=== PATIENT | female | born 1935 | race American Indian/Alaskan Native ===

== ENCOUNTER 2017-08-28 14:18 | Inpatient (IN) | payer MEDICARE ==
[2017-08-28] MEDS ORDERED: SILVER NITRATE TP ONE ×2 (15:21→15:22)
[2017-08-28 16:55] LABS: Hematocrit 23.2 % (30.3-42.9); Hemoglobin 7.2 gm/dl (10.1-14.3); Mean Corpuscular HGB Conc 31 % (30-34); Mean Corpuscular Hemoglobin 28 pg (28-32); Mean Corpuscular Volume 91 fl (79-97); Platelet Count 348 K/mm3 (140-440); Red Blood Count 2.56 M/mm3 (3.65-5.03); Red Cell Distribution Width 18.7 % (13.2-15.2)
--- NOTE | 2017-08-28 17:12 | Emergency Department Report ---
HPI - General Chief Complaint: Extremity Injury, Upper Time Seen by Provider: 08/28/17 14:54 - HPI HPI: 81-year-old -[place] female presents to ED with bleeding at dialysis access. Patient had dialysis earlier today get finished around 11 ED Past Medical Hx - Past Medical History Previous Medical History?: Yes Hx Diabetes: Yes Hx GERD: Yes Hx Renal Disease: Yes Hx Psychiatric Treatment: Yes (paranoid schizo) Hx Dementia: Yes Additional medical history: afib - Social History Smoking Status: Unknown if ever smoked - Medications Home Medications: Home Medications Medication Instructions Recorded Confirmed Last Taken Type ALPRAZolam [Xanax TAB] 0.25 mg FEEDTUBE Q6H PRN 08/28/17 08/28/17 Unknown History Acetaminophen [Children's 10 ml FEEDTUBE Q6H PRN 08/28/17 08/28/17 Unknown History Acetaminophen] Arformoterol Nebu [Brovana Nebu] 15 mcg IH Q12HR 08/28/17 08/28/17 Unknown History Aspirin [Aspirin BABY CHEW TAB] 81 mg FEEDTUBE DAILY 08/28/17 08/28/17 Unknown History AtorvaSTATin [Lipitor] 20 mg FEEDTUBE QHS 08/28/17 08/28/17 Unknown History Budesonide [Pulmicort] 0.5 mg IH Q12H 08/28/17 08/28/17 Unknown History Cinacalcet [Sensipar] 30 mg FEEDTUBE HS 08/28/17 08/28/17 Unknown History Clopidogrel Bisulfate [Plavix] 75 mg FEEDTUBE DAILY 08/28/17 08/28/17 Unknown History Donepezil [Aricept] 5 mg FEEDTUBE HS 08/28/17 08/28/17 Unknown History Dorzolamide HCl/Timolol Maleat 1 drop OU BID 08/28/17 08/28/17 Unknown History [Cosopt Eye Drops] Ferrous Sulfate [Ferrous Sulfate 5 ml FEEDTUBE DAILY 08/28/17 08/28/17 Unknown History Oral Liq 300 Mg/5 Ml] Ipratropium/Albuterol Sulfate 1 ampul IH Q8HR 08/28/17 08/28/17 Unknown History [DUONEB *Not for PRN Use*] Pantoprazole Sodium [Protonix 40 mg FEEDTUBE QDAY 08/28/17 08/28/17 Unknown History GRANULES] Phenyleph/Pramoxin/Glycr/W.pet 1 applic RC DAILY PRN 08/28/17 08/28/17 Unknown History [Hemorrhoidal Cream] QUEtiapine [SEROquel] 25 mg FEEDTUBE HS 08/28/17 08/28/17 Unknown History Sevelamer Carbonate [Renvela] 0.8 gm FEEDTUBE TID 08/28/17 08/28/17 Unknown History Vit B Comp No.3/Folic/C/Biotin 1 each FEEDTUBE DAILY 08/28/17 08/28/17 Unknown History [Nephro-Jeaneth Rx Tablet] Warfarin Sodium [Coumadin] 2.5 mg FEEDTUBE 4XW 08/28/17 08/28/17 Unknown History Warfarin Sodium [Coumadin] 3 mg FEEDTUBE 3XW 08/28/17 08/28/17 Unknown History traMADol [Ultram] 50 mg FEEDTUBE Q6HR PRN 08/28/17 08/28/17 Unknown History ED Review of Systems ROS: Stated complaint: BLEEDING Other details as noted in HPI Physical Exam - Physical Exam Vital Signs: Vital Signs 08/28/17 14:18 Temperature 98 F Pulse Rate 117 H Respiratory 16 Rate Blood Pressure 113/48 O2 Sat by Pulse 100 Oximetry Physical Exam: Gen. Alert nonverbal Head atraumatic normocephalic Eyes PERR LA EOMI Chest regular rate and rhythm normal S1-S2 lungs clear bilaterally Abdomen soft nondistended Back no point tenderness paravertebral tenderness Neuro no focal deficit. Psych normal mood. Extremity: Left upper arm with bleeding AV fistula ED Course Vital Signs 08/28/17 14:18 Temperature 98 F Pulse Rate 117 H Respiratory 16 Rate Blood Pressure 113/48 O2 Sat by Pulse 100 Oximetry - Reevaluation(s) Reevaluation #1: 08/28/17 18:37 Procedure 1 After pressure dressing at the site of the left upper arm AV fistula for 1 hour without success of hemostasis. Hemostasis agent added to bleeding without success in stopping it. In a sterile manner, 2 interrupted 5.0, Nylon, sutured place in left upper arm at the bleeding site of the dialysis fistula. Bleeding stopped. Procedure #2 Nurses unable to obtain peripheral IV in this patient, left neck area prepped in a sterile manner 20-gauge INT placed in her left external jugular vein without difficulty, patient tolerated procedure well. ED Medical Decision Making - Lab Data Result diagrams: 08/28/17 Unknown 08/28/17 Unknown Critical care attestation.: If time is entered above; I have spent that time in minutes in the direct care of this critically ill patient, excluding procedure time. ED Disposition Clinical Impression: Bleeding, Bleeding from dialysis shunt, Coumadin toxicity Disposition: OP ADMIT IP TO THIS HOSP Is pt being admited?: Yes Does the pt Need Aspirin: No Condition: Stable Referrals: PRIMARY CARE, [Primary Care Provider] - 3-5 Days
--- NOTE | 2017-08-28 17:23 | Event Note ---
Date: 08/28/17 81 year old long term patient who presented to the ER with bleeding from her AV access. Pressure held for 2 hrs, then ER placed a few stitched and the bleeding stopped. Patient is on chronic coumadin. Recommend admission by hospitalist group. Ordered DDAVP 20 mcg IV x 1 Ordered Protamine 20 mg IV x 1 Recommend obtaining INR, Plt, PTT. NPO after MN. Fistulogram tomorrow.
[2017-08-28 17:42] LABS: INR 5.79 (0.87-1.13); Partial Thromboplastin Time 70.7 Sec. (24.2-36.6)
[2017-08-28] MEDS ORDERED: PROTAMINE SULFATE IV ONE (18:00)
[2017-08-28] MEDS ORDERED: DDAVP 20 MCG in NACL 0.9% 50 ML IV ONE (18:00)
[2017-08-28] MEDS ORDERED: NACL 0.9% IV ONE (18:00)
--- NOTE | 2017-08-28 18:42 | XRay Report ---
FINAL REPORT EXAM: XR CHEST 1V AP HISTORY: dypsnea TECHNIQUE: Frontal portable examination of the chest PRIORS: None FINDINGS: Oblique patient position limits the examination. No visible acute displaced fracture. No pneumothorax or pleural effusion. Cardiac silhouette size slightly enlarged without definite vascular congestion Nonspecific patchy, linear, and interstitial opacity is noted in the left perihilar region, left upper lobe, and right upper lung. Associated slight consolidation in right upper lung. IMPRESSION: Bilateral pulmonary opacities may be scar, atelectasis, and/or pneumonia Slight cardiomegaly
[2017-08-28 19:10] LABS: Hematocrit 21.4 % (30.3-42.9); Hemoglobin 6.9 gm/dl (10.1-14.3); Mean Corpuscular HGB Conc 32 % (30-34); Mean Corpuscular Hemoglobin 29 pg (28-32); Mean Corpuscular Volume 89 fl (79-97); Platelet Count 371 K/mm3 (140-440); Red Blood Count 2.41 M/mm3 (3.65-5.03); Red Cell Distribution Width 19.1 % (13.2-15.2)
[2017-08-28] MEDS ORDERED: PROVENTIL IH PRN (19:19)
[2017-08-28] MEDS ORDERED: TYLENOL PO PRN (19:19)
[2017-08-28] MEDS ORDERED: MILK OF MAGNESIA PO PRN (19:19)
[2017-08-28] MEDS ORDERED: ZOFRAN IV PRN (19:19)
[2017-08-28] MEDS ORDERED: DULCOLAX PR PRN (19:19)
[2017-08-28] MEDS ORDERED: [UNRECOGNIZED DRUG - OTHER] RC PRN (19:21)
[2017-08-28] MEDS ORDERED: ACETAMINOPHEN FEEDTUBE PRN (19:21)
--- NOTE | 2017-08-28 19:24 | History and Physical Report ---
History of Present Illness Chief complaint: dialysis access malfunction History of present illness: 81 YO Female [facility] Resident with DM, GERD, Dementia, Atrial Fib on Anticoagulation, Paranoid Schizophrenia, Debility, ESRD on HD presents to ED for evaluation. Pt is nonverbal and unable to provide history. Pt history is taken from granddaughter who is at bedside during exam and interview. As per granddaughter, the patient underwent routine dialysis today and after her session was completed, she experienced uncontrolled bleeding from her dialysis access site. EMS was called and patient transported to [facility] for evaluation. Pt seen and evaluated in ED and found to heve coumadin toxicity, as well as Bilateral Pneumonia and Acute Hypoxemic Respiratory Failure complicated by sepsis. Pt initiated on sepsis protocol and admitted to medical floor and initiated on NIPPV. Past History Past Medical History: atrial fib, anemia, diabetes, ESRD, GERD Past Surgical History: Other (AV Fistula) Social history: . denies: smoking, alcohol abuse, prescription drug abuse Family history: hypertension Medications and Allergies Allergies Allergy/AdvReac Type Severity Reaction Status Date / Time No Known Allergies Allergy Unverified 08/28/17 14:22 Home Medications Medication Instructions Recorded Confirmed Last Taken Type ALPRAZolam [Xanax TAB] 0.25 mg FEEDTUBE Q6H PRN 08/28/17 08/28/17 Unknown History Acetaminophen [Children's 10 ml FEEDTUBE Q6H PRN 08/28/17 08/28/17 Unknown History Acetaminophen] Arformoterol Nebu [Brovana Nebu] 15 mcg IH Q12HR 08/28/17 08/28/17 Unknown History Aspirin [Aspirin BABY CHEW TAB] 81 mg FEEDTUBE DAILY 08/28/17 08/28/17 Unknown History AtorvaSTATin [Lipitor] 20 mg FEEDTUBE QHS 08/28/17 08/28/17 Unknown History Budesonide [Pulmicort] 0.5 mg IH Q12H 08/28/17 08/28/17 Unknown History Cinacalcet [Sensipar] 30 mg FEEDTUBE HS 08/28/17 08/28/17 Unknown History Clopidogrel Bisulfate [Plavix] 75 mg FEEDTUBE DAILY 08/28/17 08/28/17 Unknown History Donepezil [Aricept] 5 mg FEEDTUBE HS 08/28/17 08/28/17 Unknown History Dorzolamide HCl/Timolol Maleat 1 drop OU BID 08/28/17 08/28/17 Unknown History [Cosopt Eye Drops] Ferrous Sulfate [Ferrous Sulfate 5 ml FEEDTUBE DAILY 08/28/17 08/28/17 Unknown History Oral Liq 300 Mg/5 Ml] Ipratropium/Albuterol Sulfate 1 ampul IH Q8HR 08/28/17 08/28/17 Unknown History [DUONEB *Not for PRN Use*] Pantoprazole Sodium [Protonix 40 mg FEEDTUBE QDAY 08/28/17 08/28/17 Unknown History GRANULES] Phenyleph/Pramoxin/Glycr/W.pet 1 applic RC DAILY PRN 08/28/17 08/28/17 Unknown History [Hemorrhoidal Cream] QUEtiapine [SEROquel] 25 mg FEEDTUBE HS 08/28/17 08/28/17 Unknown History Sevelamer Carbonate [Renvela] 0.8 gm FEEDTUBE TID 08/28/17 08/28/17 Unknown History Vit B Comp No.3/Folic/C/Biotin 1 each FEEDTUBE DAILY 08/28/17 08/28/17 Unknown History [Nephro-Jeaneth Rx Tablet] Warfarin Sodium [Coumadin] 2.5 mg FEEDTUBE 4XW 08/28/17 08/28/17 Unknown History Warfarin Sodium [Coumadin] 3 mg FEEDTUBE 3XW 08/28/17 08/28/17 Unknown History traMADol [Ultram] 50 mg FEEDTUBE Q6HR PRN 08/28/17 08/28/17 Unknown History Active Meds: Active Medications Acetaminophen (Tylenol) 650 mg PO Q4H PRN PRN Reason: Pain MILD(1-3)/Fever >100.5/WISEMAN Albuterol (Proventil) 2.5 mg IH Q4HRT PRN PRN Reason: Shortness Of Breath Albuterol/Ipratropium (Duoneb *Not For Prn Use*) 1 ampul IH Q8HR [facility] Alprazolam (Xanax) 0.25 mg FEEDTUBE Q6H PRN PRN Reason: Anxiety Arformoterol Tartrate (Brovana Nebu) 15 mcg IH Q12HR [facility] Aspirin (Baby Aspirin) 81 mg FEEDTUBE DAILY [facility] Atorvastatin Calcium (Lipitor) 20 mg FEEDTUBE QHS [facility] Bisacodyl (Dulcolax) 10 mg CA QDAY PRN PRN Reason: Constipation unrelieved by MOM Budesonide (Pulmicort) 0.5 mg IH Q12H [facility] Cinacalcet (Sensipar) 30 mg PO HS [facility] Clopidogrel Bisulfate (Plavix) 75 mg FEEDTUBE DAILY [facility] Donepezil HCl (Aricept) 5 mg FEEDTUBE HS [facility] Ferrous Sulfate (Ferrous Sulfate) 300 mg FEEDTUBE DAILY [facility] Magnesium Hydroxide (Milk Of Magnesia) 30 ml PO Q4H PRN PRN Reason: Constipation Miscellaneous Medication (Acetaminophen [Acetaminophen Oral Liq]) 10 ml FEEDTUBE Q6H PRN PRN Reason: Pain, Mild (1-3) Miscellaneous Medication (Dorzolamide Hcl/Timolol Maleat [Cosopt Eye Drops]) 1 drop OU BID [facility]K Miscellaneous Medication (Phenyleph/Pramoxin/Glycr/W.Pet [Hemorrhoidal Cream]) 1 applic RC DAILY PRN PRN Reason: Hemorrhoids Miscellaneous Medication (Sevelamer Carbonate [Renvela]) 0.8 gm FEEDTUBE TID [facility] Miscellaneous Medication (Vit B Comp No.3/Folic/C/Biotin [Nephro-Jeaneth Rx Tablet] ) 1 each FEEDTUBE DAILY [facility] Ondansetron HCl (Zofran) 4 mg IV Q8H PRN PRN Reason: N/V unrelieved by Reglan Pantoprazole (Protonix) 40 mg FEEDTUBE QDAY [facility] Quetiapine Fumarate (Seroquel) 25 mg FEEDTUBE HS [facility] Tramadol HCl (Ultram) 50 mg FEEDTUBE Q6HR PRN PRN Reason: Pain Review of Systems ROS unobtainable: due to mental status Exam - Constitutional Vitals: Temp Pulse Resp BP Pulse Ox 98 F 117 H 16 120/51 100 08/28/17 14:18 08/28/17 14:18 08/28/17 17:44 08/28/17 18:32 08/28/17 18:32 General appearance: Present: mild distress - EENT Eyes: Present: PERRL ENT: clear oral mucosa - Neck Neck: Present: supple, normal ROM - Respiratory Respiratory effort: labored Respiratory: bilateral: diminished, rhonchi - Cardiovascular Rhythm: irregularly irregular - Extremities Extremities: pulses symmetrical, No edema Extremity abnormal: edema Peripheral Pulses: within normal limits - Abdominal General gastrointestinal: Present: soft, non-tender, non-distended, normal bowel sounds Female genitourinary: Present: normal - Integumentary Integumentary: Present: clear, dry, decreased turgor - Musculoskeletal Musculoskeletal: generalized weakness - Psychiatric Psychiatric: no intact judgment & insight, no memory intact - Neurologic Neurologic: no moves all extremities, no gait normal Results - Labs CBC & Chem 7: 08/28/17 Unknown 08/28/17 Unknown Labs: Abnormal lab results 08/28/17 08/28/17 08/28/17 Range/Units 17:08 19:03 Unknown WBC 22.2 H 20.0 H (4.5-11.0) K/mm3 RBC 2.41 L 2.56 L (3.65-5.03) M/mm3 Hgb 6.9 L 7.2 L (10.1-14.3) gm/dl Hct 21.4 L 23.2 L (30.3-42.9) % RDW 19.1 H 18.7 H (13.2-15.2) % PT 56.5 H (12.2-14.9) Sec. INR 5.79 H* (0.87-1.13) APTT 70.7 H* (24.2-36.6) Sec. Potassium (3.6-5.0) mmol/L Chloride (98-107) mmol/L BUN (7-17) mg/dL Creatinine (0.7-1.2) mg/dL Glucose (65-100) mg/dL Calcium (8.4-10.2) mg/dL 08/28/17 Range/Units Unknown WBC (4.5-11.0) K/mm3 RBC (3.65-5.03) M/mm3 Hgb (10.1-14.3) gm/dl Hct (30.3-42.9) % RDW (13.2-15.2) % PT (12.2-14.9) Sec. INR (0.87-1.13) APTT (24.2-36.6) Sec. Potassium 3.2 L (3.6-5.0) mmol/L Chloride 97.5 L (98-107) mmol/L BUN 38 H (7-17) mg/dL Creatinine 2.3 H (0.7-1.2) mg/dL Glucose 117 H (65-100) mg/dL Calcium 7.0 L (8.4-10.2) mg/dL Assessment and Plan - Patient Problems (1) Sepsis Current Visit: Yes Status: Acute Qualifiers: Sepsis type: sepsis due to unspecified organism Qualified Code(s): A41.9 - Sepsis, unspecified organism Plan to address problem: IV antibiotics, IVF, serial lactic acid, Blood cultures, monitor uop q shift, Chest X ray, (2) Acute respiratory failure Current Visit: Yes Status: Acute Qualifiers: Respiratory failure complication: hypoxia Qualified Code(s): J96.01 - Acute respiratory failure with hypoxia Plan to address problem: Supplemental oxygen, nebulizer therapy, ABG, Chest X ray, aspiration precautions , NIPPV, (3) Pneumonia Current Visit: Yes Status: Acute Qualifiers: Laterality: bilateral Plan to address problem: Pneumonia protocol; IV anitbiotics, IVF, NIPPV, Aspiration precautions, (4) Bleeding from dialysis shunt Current Visit: Yes Status: Acute Plan to address problem: Vascular surgery consulted, pending fistulagram in am. (5) Coumadin toxicity Current Visit: Yes Status: Acute Qualifiers: Encounter type: initial encounter Plan to address problem: hold coumadin, repeat INR, (6) DVT prophylaxis Current Visit: Yes Status: Acute Plan to address problem: SCD to BLE
[2017-08-28] MEDS ORDERED: ULTRAM ONE (19:45)
[2017-08-28 19:56] LABS: Basophils % (Manual) 0 % (0.0-1.8); Eosinophils % (Manual) 0 % (0.0-4.3); Total Cells Counted 100
[2017-08-28 19:58] LABS: Anisocytosis Few; Poikilocytosis Few; Target Cells Few
[2017-08-28] MEDS ORDERED: SEVELAMER CARBONATE 0.8 GM FEEDTUBE SCH (20:00)
[2017-08-28] MEDS ORDERED: NACL 0.9% 1000 ML IV ONE (20:00)
[2017-08-28] MEDS ORDERED: VANCOMYCIN VIAL IV ONE (20:00)
[2017-08-28] MEDS ORDERED: VANCOMYCIN PHARMACY TO DOSE IV SCH (20:00)
[2017-08-28] MEDS ORDERED: TYLENOL FEEDTUBE PRN ×2 (20:02→20:29)
[2017-08-28] MEDS ORDERED: PREPARATION H PR PRN ×2 (20:04→21:00)
[2017-08-28] MEDS: ULTRAM FEEDTUBE PRN (20:04)
[2017-08-28] MEDS ORDERED: PULMICORT IH ONE (20:38)
[2017-08-28] MEDS: PULMICORT IH SCH (20:56)
[2017-08-28] MEDS ORDERED: BROVANA NEBU IH ONE (21:00)
[2017-08-28] MEDS ORDERED: DUONEB *Not for PRN Use IH ONE (21:00)
[2017-08-28] MEDS ORDERED: ZITHROMAX 500 MG in NACL 0.9% 250ML 250 ML IV SCH (21:00)
[2017-08-28] MEDS: DUONEB *Not for PRN Use IH SCH (21:03)
[2017-08-28] MEDS: BROVANA NEBU IH SCH (21:04)
[2017-08-28] MEDS ORDERED: NON-FORMULARY (Dorzolamide Hcl/Timolol Maleat [Cosopt Eye Drops] 1 DROP) OU SCH (22:00)
[2017-08-28 22:28] LABS: Bacteria,Urine 2+ /HPF (Negative); Bilirubin,Urine NEG (Negative); Blood,Urine MOD (Negative); Color,Urine Amber (Yellow); Mucus,Urine FEW /HPF; Renal Epithelial Cells,Urine 5 /LPF; Urobilinogen,Urine < 2.0 mg/dL (<2.0)
[2017-08-28] MEDS: SENSIPAR PO SCH (22:54)
[2017-08-28] MEDS: ARICEPT FEEDTUBE SCH (22:54)
[2017-08-28] MEDS: cefTRIAXone 1 GM in NACL 0.9% 20 ML IV SCH (22:55)
[2017-08-28] MEDS ORDERED: VANCOMYCIN 1,750 MG in NACL 0.9% 500 ML 500 ML IV ONE (23:00)
[2017-08-29] MEDS: ULTRAM FEEDTUBE PRN (01:31)
[2017-08-29] MEDS: XANAX FEEDTUBE PRN (01:31)
[2017-08-29 06:47] LABS: Hematocrit 20.1 % (30.3-42.9); Hemoglobin 6.3 gm/dl (10.1-14.3); Mean Corpuscular HGB Conc 31 % (30-34); Mean Corpuscular Hemoglobin 28 pg (28-32); Mean Corpuscular Volume 90 fl (79-97); Platelet Count 351 K/mm3 (140-440); Red Blood Count 2.23 M/mm3 (3.65-5.03); Red Cell Distribution Width 18.5 % (13.2-15.2)
[2017-08-29] MEDS: PULMICORT IH SCH ×2 (08:05→20:02)
[2017-08-29] MEDS: BROVANA NEBU IH SCH ×2 (08:05→14:43)
[2017-08-29] MEDS: DUONEB *Not for PRN Use IH SCH ×3 (08:06→20:02)
[2017-08-29 08:34] LABS: Basophils % (Manual) 0 % (0.0-1.8); Eosinophils % (Manual) 0 % (0.0-4.3); Total Cells Counted 100
[2017-08-29 08:37] LABS: Anisocytosis 1+; Hypochromasia 1+; Platelet Estimate Cons; Toxic Granulation 1+
--- NOTE | 2017-08-29 09:45 | Consultation ---
History of Present Illness - Reason for Consult Consult date: 08/29/17 end stage renal disease, other (Anemia.) - History of Present Illness The patient is a 81 YO AAF with history significant for Type 2 DM, GERD, Dementia, Atrial Fib on Anticoagulation, Paranoid Schizophrenia, ESRD on HD(TTS ) and NH resident who was brought into ED for evaluation of uncontrolled bleeding from her right forearm dialysis access site. Patient is non-verbal and there was no family available at the bedside. Pt seen and evaluated in ED and found to heve coumadin toxicity, as well as Bilateral Pneumonia and Acute Hypoxemic Respiratory Failure. Patient had stitch placed in the ER and subsequently the bleeding was stopped. She also received DDAVP and Protamine. Vascular scheduled her to get Fistulogram today. Patient completed the hemodialysis session yesterday. Her Hb is 6.3 today. Past History Past Medical History: atrial fib, anemia, diabetes, ESRD, GERD Past Surgical History: Other (AV Fistula) Social history: . denies: smoking, alcohol abuse, prescription drug abuse Family history: hypertension Medications and Allergies Allergies Allergy/AdvReac Type Severity Reaction Status Date / Time No Known Allergies Allergy Unverified 08/28/17 14:22 Home Medications Medication Instructions Recorded Confirmed Last Taken Type ALPRAZolam [Xanax TAB] 0.25 mg FEEDTUBE Q6H PRN 08/28/17 08/28/17 Unknown History Acetaminophen [Children's 10 ml FEEDTUBE Q6H PRN 08/28/17 08/28/17 Unknown History Acetaminophen] Arformoterol Nebu [Brovana Nebu] 15 mcg IH Q12HR 08/28/17 08/28/17 Unknown History Aspirin [Aspirin BABY CHEW TAB] 81 mg FEEDTUBE DAILY 08/28/17 08/28/17 Unknown History AtorvaSTATin [Lipitor] 20 mg FEEDTUBE QHS 08/28/17 08/28/17 Unknown History Budesonide [Pulmicort] 0.5 mg IH Q12H 08/28/17 08/28/17 Unknown History Cinacalcet [Sensipar] 30 mg FEEDTUBE HS 08/28/17 08/28/17 Unknown History Clopidogrel Bisulfate [Plavix] 75 mg FEEDTUBE DAILY 08/28/17 08/28/17 Unknown History Donepezil [Aricept] 5 mg FEEDTUBE HS 08/28/17 08/28/17 Unknown History Dorzolamide HCl/Timolol Maleat 1 drop OU BID 08/28/17 08/28/17 Unknown History [Cosopt Eye Drops] Ferrous Sulfate [Ferrous Sulfate 5 ml FEEDTUBE DAILY 08/28/17 08/28/17 Unknown History Oral Liq 300 Mg/5 Ml] Ipratropium/Albuterol Sulfate 1 ampul IH Q8HR 08/28/17 08/28/17 Unknown History [DUONEB *Not for PRN Use*] Pantoprazole Sodium [Protonix 40 mg FEEDTUBE QDAY 08/28/17 08/28/17 Unknown History GRANULES] Phenyleph/Pramoxin/Glycr/W.pet 1 applic RC DAILY PRN 08/28/17 08/28/17 Unknown History [Hemorrhoidal Cream] QUEtiapine [SEROquel] 25 mg FEEDTUBE HS 08/28/17 08/28/17 Unknown History Sevelamer Carbonate [Renvela] 0.8 gm FEEDTUBE TID 08/28/17 08/28/17 Unknown History Vit B Comp No.3/Folic/C/Biotin 1 each FEEDTUBE DAILY 08/28/17 08/28/17 Unknown History [Nephro-Jeaneth Rx Tablet] Warfarin Sodium [Coumadin] 2.5 mg FEEDTUBE 4XW 08/28/17 08/28/17 Unknown History Warfarin Sodium [Coumadin] 3 mg FEEDTUBE 3XW 08/28/17 08/28/17 Unknown History traMADol [Ultram] 50 mg FEEDTUBE Q6HR PRN 08/28/17 08/28/17 Unknown History Active Meds: Active Medications Acetaminophen (Tylenol) 325 mg FEEDTUBE Q4H PRN PRN Reason: Pain, Mild (1-3) Acetaminophen (Tylenol) 650 mg FEEDTUBE Q4H PRN PRN Reason: Pain, Mild /FEVER>100.5/WISEMAN Albuterol (Proventil) 2.5 mg IH Q4HRT PRN PRN Reason: Shortness Of Breath Albuterol/Ipratropium (Duoneb *Not For Prn Use*) 1 ampul IH Q8HR [facility] Last Admin: 08/29/17 08:06 Dose: 1 ampul Alprazolam (Xanax) 0.25 mg FEEDTUBE Q6H PRN PRN Reason: Anxiety Last Admin: 08/29/17 01:31 Dose: 0.25 mg Arformoterol Tartrate (Brovana Nebu) 15 mcg IH Q12HR [facility] Last Admin: 08/29/17 08:05 Dose: 15 mcg Aspirin (Baby Aspirin) 81 mg FEEDTUBE DAILY [facility] Atorvastatin Calcium (Lipitor) 20 mg FEEDTUBE QHS [facility] Last Admin: 08/28/17 22:54 Dose: 20 mg Bisacodyl (Dulcolax) 10 mg DC QDAY PRN PRN Reason: Constipation unrelieved by MOM Budesonide (Pulmicort) 0.5 mg IH Q12H [facility] Last Admin: 08/29/17 08:05 Dose: 0.5 mg Cinacalcet (Sensipar) 30 mg PO HS [facility] Last Admin: 08/28/17 22:54 Dose: 30 mg Clopidogrel Bisulfate (Plavix) 75 mg FEEDTUBE DAILY [facility] Donepezil HCl (Aricept) 5 mg FEEDTUBE [facility] Last Admin: 08/28/17 22:54 Dose: 5 mg Ferrous Sulfate (Ferrous Sulfate) 300 mg FEEDTUBE DAILY [facility] Azithromycin 500 mg/ Sodium (Chloride) 250 mls @ 250 mls/hr IV Q24H [facility] Last Admin: 08/28/17 22:54 Dose: 250 mls/hr Ceftriaxone Sodium 1 gm/ (Sodium Chloride) 20 mls @ 20 mls/10 min IV Q24H [facility] Last Admin: 08/28/17 22:55 Dose: 20 mls/10 min Magnesium Hydroxide (Milk Of Magnesia) 30 ml PO Q4H PRN PRN Reason: Constipation Miscellaneous Medication (Dorzolamide Hcl/Timolol Maleat [Cosopt Eye Drops]) 1 drop OU BID [facility] Miscellaneous Medication (Sevelamer Carbonate [Renvela]) 0.8 gm FEEDTUBE TID [facility] Miscellaneous Medication (Vit B Comp No.3/Folic/C/Biotin [Nephro-Jeaneth Rx Tablet] ) 1 each FEEDTUBE DAILY [facility] Ondansetron HCl (Zofran) 4 mg IV Q8H PRN PRN Reason: N/V unrelieved by Reglan Pantoprazole (Protonix) 40 mg FEEDTUBE QDAY [facility] Phenyleph/Shark Oil/Min Oil/Petrol (Preparation H) 1 applic DC DAILY PRN PRN Reason: Hemorrhoids Quetiapine Fumarate (Seroquel) 25 mg FEEDTUBE HS [facility] Last Admin: 08/28/17 22:54 Dose: 25 mg Tramadol HCl (Ultram) 50 mg FEEDTUBE Q6HR PRN PRN Reason: Pain Last Admin: 08/29/17 01:31 Dose: 50 mg Vancomycin HCl (Vancomycin Pharmacy To Dose) 1 each IV PKCONSULT [facility]IVEK PRN Reason: Protocol Review of Systems ROS unobtainable: due to mental status Exam - Vital Signs Vital signs: Vital Signs Pulse Ox 100 08/28/17 14:12 - General Appearance General appearance: well-developed, appears stated age, other (no distress) EENT: ATNC, PERRL Neck: Present: neck supple Respiratory: Clear to Ascultation Heart: regular, S1S2, no murmurs Gastrointestinal: Present: normoactive bowel sounds, other (PEG tube noted). Absent: tenderness Integumentary: no rash Neurologic: other (grimaces, non-verbal, not following any command) Musculoskeletal: Present: other (1+ edema of extremities noted, right FA dressing soaked with blood) Results - Lab Results 08/29/17 06:16 08/28/17 Unknown Most recent lab results Calcium 7.0 mg/dL (8.4-10.2) L 08/28/17 Unknown Assessment and Plan 1. ESRD: Continue hemodialysis three times a week, TTS schedule. 2. Anemia: PRBC ordered. Epogen as needed. 3. Bleeding AVF: Fistulogram today. 4. Coumadin toxicity. 5. Bilateral pneumonia. 6. Hypoxic respiratory failure.
[2017-08-29] MEDS ORDERED: ROCEPHIN/NS 2 GM/100 ML 2 GM/100 ML BAG IV SCH (10:00)
[2017-08-29] MEDS ORDERED: NON-FORMULARY (Vit B Comp No.3/Folic/C/Biotin [Nephro-Vite Rx Tablet] 1 EACH) FEEDTUBE SCH (10:00)
--- NOTE | 2017-08-29 10:11 | Progress Note ---
Assessment and Plan Assessment and plan: Sepsis IV antibiotics, IVF, serial lactic acid, Blood cultures, monitor uop q shift, Chest X ray, Acute respiratory failure Supplemental oxygen, nebulizer therapy, ABG, Chest X ray, aspiration precautions , NIPPV as needed Pneumonia Pneumonia pathway. Cont. IV anitbiotics, IVF, NIPPV as clinically indicated, Aspiration precautions, Bleeding from dialysis shunt Vascular surgery consulted, pending fistulagram today Coumadin toxicity hold coumadin, transfuse FFP, Vit K IV x 1 Acute blood loss anemia on ESRD Transfuse 2 units PRBCs ESRD HD per Nephrology DVT prophylaxis SCD to BLE History Interval history: PT still with bleeding at graft site Hospitalist Physical - Constitutional Vitals: Temp Pulse Resp BP Pulse Ox 98.4 F 128 H 22 125/56 95 08/29/17 07:25 08/29/17 08:19 08/29/17 08:19 08/29/17 07:25 08/29/17 08:20 General appearance: Present: mild distress - EENT Eyes: Present: PERRL, EOM intact ENT: hearing intact, clear oral mucosa, dentition normal - Neck Neck: Present: supple, normal ROM - Respiratory Respiratory effort: normal Respiratory: bilateral: CTA - Cardiovascular Rhythm: regular Heart Sounds: Present: S1 & S2. Absent: gallop, rub - Extremities Extremities: no ischemia, No edema, Full ROM - Abdominal General gastrointestinal: soft, non-tender, non-distended, normal bowel sounds - Integumentary Integumentary: Present: clear, warm, dry - Neurologic Neurologic: CNII-XII intact, moves all extremities Results - Labs CBC & Chem 7: 08/29/17 06:16 08/28/17 Unknown Labs: Laboratory Last Values WBC 18.0 K/mm3 (4.5-11.0) H 08/29/17 06:16 RBC 2.23 M/mm3 (3.65-5.03) L 08/29/17 06:16 Hgb 6.3 gm/dl (10.1-14.3) L 08/29/17 06:16 Hct 20.1 % (30.3-42.9) L 08/29/17 06:16 MCV 90 fl (79-97) 08/29/17 06:16 MCH 28 pg (28-32) 08/29/17 06:16 MCHC 31 % (30-34) 08/29/17 06:16 RDW 18.5 % (13.2-15.2) H 08/29/17 06:16 Plt Count 351 K/mm3 (140-440) 08/29/17 06:16 Add Manual Diff Complete 08/29/17 06:16 Total Counted 100 08/29/17 06:16 Seg Neutrophils % Founder 08/29/17 06:16 Seg Neuts % (Manual) 95.0 % (40.0-70.0) H 08/29/17 06:16 Band Neutrophils % 0 % 08/29/17 06:16 Lymphocytes % (Manual) 2.0 % (13.4-35.0) L 08/29/17 06:16 Reactive Lymphs % (Man) 0 % 08/29/17 06:16 Monocytes % (Manual) 3.0 % (0.0-7.3) 08/29/17 06:16 Eosinophils % (Manual) 0 % (0.0-4.3) 08/29/17 06:16 Basophils % (Manual) 0 % (0.0-1.8) 08/29/17 06:16 Metamyelocytes % 0 % 08/29/17 06:16 Myelocytes % 0 % 08/29/17 06:16 Promyelocytes % 0 % 08/29/17 06:16 Blast Cells % 0 % 08/29/17 06:16 Nucleated RBC % Not Reportable 08/29/17 06:16 Seg Neutrophils # Man 17.1 K/mm3 (1.8-7.7) H 08/29/17 06:16 Band Neutrophils # 0.0 K/mm3 08/29/17 06:16 Lymphocytes # (Manual) 0.4 K/mm3 (1.2-5.4) L 08/29/17 06:16 Abs React Lymphs (Man) 0.0 K/mm3 08/29/17 06:16 Monocytes # (Manual) 0.5 K/mm3 (0.0-0.8) 08/29/17 06:16 Eosinophils # (Manual) 0.0 K/mm3 (0.0-0.4) 08/29/17 06:16 Basophils # (Manual) 0.0 K/mm3 (0.0-0.1) 08/29/17 06:16 Metamyelocytes # 0.0 K/mm3 08/29/17 06:16 Myelocytes # 0.0 K/mm3 08/29/17 06:16 Promyelocytes # 0.0 K/mm3 08/29/17 06:16 Blast Cells # 0.0 K/mm3 08/29/17 06:16 WBC Morphology Not Reportable 08/29/17 06:16 Hypersegmented Neuts Not Reportable 08/29/17 06:16 Hyposegmented Neuts Not Reportable 08/29/17 06:16 Hypogranular Neuts Not Reportable 08/29/17 06:16 Smudge Cells Not Reportable 08/29/17 06:16 Toxic Granulation 1+ 08/29/17 06:16 Toxic Vacuolation Not Reportable 08/29/17 06:16 Dohle Bodies Not Reportable 08/29/17 06:16 Pelger-Huet Anomaly Not Reportable 08/29/17 06:16 Rafi Rods Not Reportable 08/29/17 06:16 Platelet Estimate Cons 08/29/17 06:16 Clumped Platelets Not Reportable 08/29/17 06:16 Plt Clumps, EDTA Not Reportable 08/29/17 06:16 Large Platelets Not Reportable 08/29/17 06:16 Giant Platelets Not Reportable 08/29/17 06:16 Platelet Satelliting Not Reportable 08/29/17 06:16 Plt Morphology Comment Not Reportable 08/29/17 06:16 RBC Morphology Not Reportable 08/29/17 06:16 Dimorphic RBCs Not Reportable 08/29/17 06:16 Polychromasia Not Reportable 08/29/17 06:16 Hypochromasia 1+ 08/29/17 06:16 Poikilocytosis Not Reportable 08/29/17 06:16 Anisocytosis 1+ 08/29/17 06:16 Microcytosis Not Reportable 08/29/17 06:16 Macrocytosis Not Reportable 08/29/17 06:16 Spherocytes Not Reportable 08/29/17 06:16 Pappenheimer Bodies Not Reportable 08/29/17 06:16 Sickle Cells Not Reportable 08/29/17 06:16 Target Cells Not Reportable 08/29/17 06:16 Tear Drop Cells Not Reportable 08/29/17 06:16 Ovalocytes Not Reportable 08/29/17 06:16 Helmet Cells Not Reportable 08/29/17 06:16 [place] Bodies Not Reportable 08/29/17 06:16 [place] Rings Not Reportable 08/29/17 06:16 [place] Cells Not Reportable 08/29/17 06:16 Bite Cells Not Reportable 08/29/17 06:16 Crenated Cell Not Reportable 08/29/17 06:16 Elliptocytes Not Reportable 08/29/17 06:16 Acanthocytes (Spur) Not Reportable 08/29/17 06:16 Rouleaux Not Reportable 08/29/17 06:16 Hemoglobin C Crystals Not Reportable 08/29/17 06:16 Schistocytes Not Reportable 08/29/17 06:16 Malaria parasites Not Reportable 08/29/17 06:16 Daniel Bodies Not Reportable 08/29/17 06:16 Hem Pathologist Commnt No 08/29/17 06:16 PT 56.5 Sec. (12.2-14.9) H 08/28/17 17:08 INR 5.79 (0.87-1.13) H* 08/28/17 17:08 APTT 70.7 Sec. (24.2-36.6) H* 08/28/17 17:08 POC ABG pH 7.483 (7.35-7.45) H 08/29/17 01:30 POC ABG pCO2 37.6 (35-45) 08/29/17 01:30 POC ABG pO2 98 (80-105) 08/29/17 01:30 POC ABG HCO3 28.2 08/29/17 01:30 POC ABG Total CO2 29 08/29/17 01:30 POC ABG O2 Sat 98 08/29/17 01:30 POC ABG Base Excess 5 08/29/17 01:30 FiO2 35 % 08/29/17 01:30 Sodium 142 mmol/L (137-145) 08/28/17 Unknown Potassium 3.2 mmol/L (3.6-5.0) L 08/28/17 Unknown Chloride 97.5 mmol/L (98-107) L 08/28/17 Unknown Carbon Dioxide 25 mmol/L (22-30) 08/28/17 Unknown Anion Gap 23 mmol/L 08/28/17 Unknown BUN 38 mg/dL (7-17) H 08/28/17 Unknown Creatinine 2.3 mg/dL (0.7-1.2) H 08/28/17 Unknown Estimated GFR 25 ml/min 08/28/17 Unknown BUN/Creatinine Ratio 17 % 08/28/17 Unknown Glucose 117 mg/dL (65-100) H 08/28/17 Unknown Lactic Acid 2.00 mmol/L (0.7-2.0) 08/29/17 06:16 Calcium 7.0 mg/dL (8.4-10.2) L 08/28/17 Unknown Urine Color [place] (Yellow) 08/28/17 21:58 Urine Turbidity Clear (Clear) 08/28/17 21:58 Urine pH 6.0 (5.0-7.0) 08/28/17 21:58 Ur Specific [place] 1.015 (1.003-1.030) 08/28/17 21:58 Urine Protein 100 mg/dl mg/dL (Negative) 08/28/17 21:58 Urine Glucose (UA) 50 mg/dL (Negative) 08/28/17 21:58 Urine Ketones Neg mg/dL (Negative) 08/28/17 21:58 Urine Blood Mod (Negative) 08/28/17 21:58 Urine Nitrite Neg (Negative) 08/28/17 21:58 Urine Bilirubin Neg (Negative) 08/28/17 21:58 Urine Urobilinogen < 2.0 mg/dL (<2.0) 08/28/17 21:58 Ur Leukocyte Esterase Mod (Negative) 08/28/17 21:58 Urine WBC (Auto) 161.0 /HPF (0.0-6.0) H 08/28/17 21:58 Urine RBC (Auto) 105.0 /HPF (0.0-6.0) 08/28/17 21:58 U Epithel Cells (Auto) 6.0 /HPF (0-13.0) 08/28/17 21:58 Urine Bacteria (Auto) 2+ /HPF (Negative) 08/28/17 21:58 Urine WBC Clumps 1+ /HPF 08/28/17 21:58 Ur Renal Epithelial Cell 5 /LPF 08/28/17 21:58 Urine Mucus Few /HPF 08/28/17 21:58
[2017-08-29] MEDS ORDERED: NACL 0.9% 100 ML IV PRN (10:31)
[2017-08-29] MEDS ORDERED: VITAMIN K (ADULT ONLY) 10 MG in NACL 0.9% 50 ML IV ONE (11:30)
[2017-08-29] MEDS ORDERED: NACL 0.9% 500 ML 500 ML IV ONE ×2 (13:00→16:00)
--- NOTE | 2017-08-29 14:02 | Consultation ---
History of Present Illness - Reason for Consult Consult date: 08/29/17 Bleeding fistula - History of Present Illness 81-year-old female who is a care home resident with dementia, paranoid schizophrenia, atrial fibrillation on Coumadin, diabetes, gastroesophageal reflux disease, and end-stage renal disease was brought to the hospital with bleeding from her left upper extremity AV graft. This was treated with DDAVP, protamine, pressure, and sutures and there is no additional bleeding from the site. The patient also has bleeding from a venipuncture of her right forearm with a pressure bandage held over that region. The patient was admitted to the hospital after prolonged bleeding from her left upper extremity dialysis access which could not be controlled. She was found to have Coumadin overdose, and respiratory issues complicated by sepsis. Upon evaluation of the patient, she had hematoma from her right forearm with a pressure bandage, and a weak thrill from her left upper extremity graft. She is alert, but oriented 0. Past History Past Medical History: atrial fib, anemia, diabetes, ESRD, GERD Past Surgical History: Other (AV Fistula) Social history: . denies: smoking, alcohol abuse, prescription drug abuse Family history: hypertension Medications and Allergies Allergies Allergy/AdvReac Type Severity Reaction Status Date / Time No Known Allergies Allergy Unverified 08/28/17 14:22 Home Medications Medication Instructions Recorded Confirmed Last Taken Type ALPRAZolam [Xanax TAB] 0.25 mg FEEDTUBE Q6H PRN 08/28/17 08/28/17 Unknown History Acetaminophen [Children's 10 ml FEEDTUBE Q6H PRN 08/28/17 08/28/17 Unknown History Acetaminophen] Arformoterol Nebu [Brovana Nebu] 15 mcg IH Q12HR 08/28/17 08/28/17 Unknown History Aspirin [Aspirin BABY CHEW TAB] 81 mg FEEDTUBE DAILY 08/28/17 08/28/17 Unknown History AtorvaSTATin [Lipitor] 20 mg FEEDTUBE QHS 08/28/17 08/28/17 Unknown History Budesonide [Pulmicort] 0.5 mg IH Q12H 08/28/17 08/28/17 Unknown History Cinacalcet [Sensipar] 30 mg FEEDTUBE HS 08/28/17 08/28/17 Unknown History Clopidogrel Bisulfate [Plavix] 75 mg FEEDTUBE DAILY 08/28/17 08/28/17 Unknown History Donepezil [Aricept] 5 mg FEEDTUBE HS 08/28/17 08/28/17 Unknown History Dorzolamide HCl/Timolol Maleat 1 drop OU BID 08/28/17 08/28/17 Unknown History [Cosopt Eye Drops] Ferrous Sulfate [Ferrous Sulfate 5 ml FEEDTUBE DAILY 08/28/17 08/28/17 Unknown History Oral Liq 300 Mg/5 Ml] Ipratropium/Albuterol Sulfate 1 ampul IH Q8HR 08/28/17 08/28/17 Unknown History [DUONEB *Not for PRN Use*] Pantoprazole Sodium [Protonix 40 mg FEEDTUBE QDAY 08/28/17 08/28/17 Unknown History GRANULES] Phenyleph/Pramoxin/Glycr/W.pet 1 applic RC DAILY PRN 08/28/17 08/28/17 Unknown History [Hemorrhoidal Cream] QUEtiapine [SEROquel] 25 mg FEEDTUBE HS 08/28/17 08/28/17 Unknown History Sevelamer Carbonate [Renvela] 0.8 gm FEEDTUBE TID 08/28/17 08/28/17 Unknown History Vit B Comp No.3/Folic/C/Biotin 1 each FEEDTUBE DAILY 08/28/17 08/28/17 Unknown History [Nephro-Jeaneth Rx Tablet] Warfarin Sodium [Coumadin] 2.5 mg FEEDTUBE 4XW 08/28/17 08/28/17 Unknown History Warfarin Sodium [Coumadin] 3 mg FEEDTUBE 3XW 08/28/17 08/28/17 Unknown History traMADol [Ultram] 50 mg FEEDTUBE Q6HR PRN 08/28/17 08/28/17 Unknown History Active Meds: Active Medications Acetaminophen (Tylenol) 650 mg FEEDTUBE Q4H PRN PRN Reason: Pain, Mild /FEVER>100.5/WISEMAN Albuterol (Proventil) 2.5 mg IH Q4HRT PRN PRN Reason: Shortness Of Breath Albuterol/Ipratropium (Duoneb *Not For Prn Use*) 1 ampul IH Q8HR VIVEK Last Admin: 08/29/17 08:06 Dose: 1 ampul Alprazolam (Xanax) 0.25 mg FEEDTUBE Q6H PRN PRN Reason: Anxiety Last Admin: 08/29/17 01:31 Dose: 0.25 mg Arformoterol Tartrate (Brovana Nebu) 15 mcg IH Q12HR [facility] Last Admin: 08/29/17 08:05 Dose: 15 mcg Aspirin (Baby Aspirin) 81 mg FEEDTUBE DAILY [facility] Atorvastatin Calcium (Lipitor) 20 mg FEEDTUBE QHS [facility] Last Admin: 08/28/17 22:54 Dose: 20 mg Azithromycin (Zithromax) 500 mg FEEDTUBE QHS [facility] Bisacodyl (Dulcolax) 10 mg DE QDAY PRN PRN Reason: Constipation unrelieved by MOM Budesonide (Pulmicort) 0.5 mg IH Q12H [facility] Last Admin: 08/29/17 08:05 Dose: 0.5 mg Cinacalcet (Sensipar) 30 mg PO HS [facility] Last Admin: 08/28/17 22:54 Dose: 30 mg Clopidogrel Bisulfate (Plavix) 75 mg FEEDTUBE DAILY [facility] Donepezil HCl (Aricept) 5 mg FEEDTUBE HS [facility] Last Admin: 08/28/17 22:54 Dose: 5 mg Ferrous Sulfate (Ferrous Sulfate) 300 mg FEEDTUBE DAILY [facility] Ceftriaxone Sodium 1 gm/ (Sodium Chloride) 20 mls @ 20 mls/10 min IV Q24H [facility] Last Admin: 08/28/17 22:55 Dose: 20 mls/10 min Sodium Chloride (Nacl 0.9%) 100 mls @ 999 mls/hr IV CHANDLER PRN PRN Reason: Hypotension Magnesium Hydroxide (Milk Of Magnesia) 30 ml PO Q4H PRN PRN Reason: Constipation Miscellaneous Medication (Dorzolamide Hcl/Timolol Maleat [Cosopt Eye Drops]) 1 drop OU BID [facility] Miscellaneous Medication (Sevelamer Carbonate [Renvela]) 0.8 gm FEEDTUBE TID [facility] Miscellaneous Medication (Vit B Comp No.3/Folic/C/Biotin [Nephro-Jeaneth Rx Tablet] ) 1 each FEEDTUBE DAILY [facility] Ondansetron HCl (Zofran) 4 mg IV Q8H PRN PRN Reason: N/V unrelieved by Reglan Pantoprazole (Protonix) 40 mg FEEDTUBE QDAY [facility] Phenyleph/Shark Oil/Min Oil/Petrol (Preparation H) 1 applic DE DAILY PRN PRN Reason: Hemorrhoids Quetiapine Fumarate (Seroquel) 25 mg FEEDTUBE HS VIVEK Last Admin: 08/28/17 22:54 Dose: 25 mg Tramadol HCl (Ultram) 50 mg FEEDTUBE Q6HR PRN PRN Reason: Pain Last Admin: 08/29/17 01:31 Dose: 50 mg Vancomycin HCl (Vancomycin Pharmacy To Dose) 1 each IV PKCONSULT VIVEK PRN Reason: Protocol Review of Systems ROS unobtainable: due to mental status Exam - Constitutional Vitals: Temp Pulse Resp BP Pulse Ox 98.4 F 128 H 22 125/56 95 08/29/17 07:25 08/29/17 08:19 08/29/17 08:19 08/29/17 07:25 08/29/17 08:20 General appearance: Present: other (obtunded) - EENT ENT: other (obtunded) - Respiratory Respiratory effort: other (on Ventimask) - Extremities Extremities: abnormal (right forearm hematoma, weak left upper extremity thrill) - Abdominal General gastrointestinal: Present: soft - Psychiatric Psychiatric: other (obtunded, oriented 0) Results - Labs CBC & Chem 7: 08/29/17 06:16 08/28/17 Unknown Labs: Abnormal lab results 08/28/17 08/28/17 08/28/17 Range/Units 17:08 19:03 21:58 WBC 22.2 H (4.5-11.0) K/mm3 RBC 2.41 L (3.65-5.03) M/mm3 Hgb 6.9 L (10.1-14.3) gm/dl Hct 21.4 L (30.3-42.9) % RDW 19.1 H (13.2-15.2) % Seg Neuts % (Manual) 94.0 H (40.0-70.0) % Lymphocytes % (Manual) 1.0 L (13.4-35.0) % Seg Neutrophils # Man 20.9 H (1.8-7.7) K/mm3 Lymphocytes # (Manual) 0.2 L (1.2-5.4) K/mm3 Monocytes # (Manual) 1.1 H (0.0-0.8) K/mm3 PT 56.5 H (12.2-14.9) Sec. INR 5.79 H* (0.87-1.13) APTT 70.7 H* (24.2-36.6) Sec. POC ABG pH (7.35-7.45) Potassium (3.6-5.0) mmol/L Chloride (98-107) mmol/L BUN (7-17) mg/dL Creatinine (0.7-1.2) mg/dL Glucose (65-100) mg/dL Calcium (8.4-10.2) mg/dL Urine WBC (Auto) 161.0 H (0.0-6.0) /HPF Crossmatch 08/28/17 08/28/17 08/29/17 Range/Units Unknown Unknown 01:30 WBC 20.0 H (4.5-11.0) K/mm3 RBC 2.56 L (3.65-5.03) M/mm3 Hgb 7.2 L (10.1-14.3) gm/dl Hct 23.2 L (30.3-42.9) % RDW 18.7 H (13.2-15.2) % Seg Neuts % (Manual) (40.0-70.0) % Lymphocytes % (Manual) (13.4-35.0) % Seg Neutrophils # Man (1.8-7.7) K/mm3 Lymphocytes # (Manual) (1.2-5.4) K/mm3 Monocytes # (Manual) (0.0-0.8) K/mm3 PT (12.2-14.9) Sec. INR (0.87-1.13) APTT (24.2-36.6) Sec. POC ABG pH 7.483 H (7.35-7.45) Potassium 3.2 L (3.6-5.0) mmol/L Chloride 97.5 L (98-107) mmol/L BUN 38 H (7-17) mg/dL Creatinine 2.3 H (0.7-1.2) mg/dL Glucose 117 H (65-100) mg/dL Calcium 7.0 L (8.4-10.2) mg/dL Urine WBC (Auto) (0.0-6.0) /HPF Crossmatch 08/29/17 08/29/17 Range/Units 06:16 11:40 WBC 18.0 H (4.5-11.0) K/mm3 RBC 2.23 L (3.65-5.03) M/mm3 Hgb 6.3 L (10.1-14.3) gm/dl Hct 20.1 L (30.3-42.9) % RDW 18.5 H (13.2-15.2) % Seg Neuts % (Manual) 95.0 H (40.0-70.0) % Lymphocytes % (Manual) 2.0 L (13.4-35.0) % Seg Neutrophils # Man 17.1 H (1.8-7.7) K/mm3 Lymphocytes # (Manual) 0.4 L (1.2-5.4) K/mm3 Monocytes # (Manual) (0.0-0.8) K/mm3 PT (12.2-14.9) Sec. INR (0.87-1.13) APTT (24.2-36.6) Sec. POC ABG pH (7.35-7.45) Potassium (3.6-5.0) mmol/L Chloride (98-107) mmol/L BUN (7-17) mg/dL Creatinine (0.7-1.2) mg/dL Glucose (65-100) mg/dL Calcium (8.4-10.2) mg/dL Urine WBC (Auto) (0.0-6.0) /HPF Crossmatch See Detail Assessment and Plan 81-year-old female with multiple medical problems including end-stage renal disease on hemodialysis who is presenting with Coumadin toxicity and bleeding from her left upper extremity AV access which was controlled by medications including DDAVP, protamine, and sutures and a right forearm hematoma from a venipuncture per nursing staff. I discussed with the patient's daughter, her power of ip technology transactions attorney, that options include rechecking her INR and based on that placing a temporary catheter until INR can be corrected, or performing a fistulogram if INR is not significantly elevated. The patient's daughter appears extremely frustrated with having to have thrombectomies performed on her demented mother at [place] multiple times and the current bleeding issues. It appears the daughter believes that the issues associated with her mother's care outweigh any benefits of dialysis and she understands that discontinuing dialysis will result in . The patient's daughter will decide if she wishes to continue dialysis. She will discuss this with her machine stuffer automatic. I contacted Dr. Unger to alert him to this. I followed up later with the patient's nurse who informed me that they have decided to stop dialysis to make the patient DNR and pursue hospice.
[2017-08-29 14:14] LABS: INR 4.27 (0.87-1.13)
[2017-08-29] MEDS ORDERED: SODIUM BICARBONATE FEEDTUBE PRN (14:37)
[2017-08-29] MEDS ORDERED: PANCREAZE DR 10,500 UNIT FEEDTUBE PRN (14:37)
[2017-08-29] MEDS ORDERED: SIMPLE SYRUP FEEDTUBE PRN ×2 (14:37)
[2017-08-29] MEDS: FERROUS SULFATE FEEDTUBE SCH (17:25)
[2017-08-29] MEDS: PROTONIX FEEDTUBE SCH (17:25)
[2017-08-29] MEDS: PLAVIX FEEDTUBE SCH (17:26)
[2017-08-29] MEDS: BABY ASPIRIN FEEDTUBE SCH (17:26)
[2017-08-29] MEDS: ARICEPT FEEDTUBE SCH (21:28)
[2017-08-29] MEDS: SENSIPAR PO SCH (21:29)
[2017-08-29] MEDS: ZITHROMAX FEEDTUBE SCH (21:29)
[2017-08-29] MEDS: cefTRIAXone 1 GM in NACL 0.9% 20 ML IV SCH (21:35)
[2017-08-30 06:52] LABS: Hemoglobin 6.3 gm/dl (10.1-14.3); Mean Corpuscular HGB Conc 31 % (30-34); Mean Corpuscular Hemoglobin 28 pg (28-32); Mean Corpuscular Volume 89 fl (79-97); Platelet Count 274 K/mm3 (140-440); Red Blood Count 2.25 M/mm3 (3.65-5.03); Red Cell Distribution Width 17.5 % (13.2-15.2)
[2017-08-30 06:53] LABS: Albumin 2.5 g/dL (3.9-5); Calcium 7.7 mg/dL (8.4-10.2)
[2017-08-30 07:01] LABS: INR 2.28 (0.87-1.13)
[2017-08-30 07:02] LABS: Partial Thromboplastin Time 36.6 Sec. (24.2-36.6)
--- NOTE | 2017-08-30 07:33 | Progress Note ---
Assessment and Plan 1. ESRD: Family decided to stop dialysis. 2. Anemia: Secondary to bleeding from AVF, stopped now. 3. Coumadin toxicity. 4. Bilateral pneumonia. 5. Hypoxic respiratory failure. 6. Elevated Transaminases. Talked to her daughter yesterday. Family is leaning towards Hospice. Subjective Date of service: 08/30/17 Interval history: Patient was seen and examined at the bedside. Objective - Vital Signs Vital signs: Vital Signs - 12hr 08/29/17 08/29/17 08/29/17 19:37 19:50 20:03 Temperature 98.1 F 98.6 F Pulse Rate 120 H 103 H Pulse Rate [ 116 H 118 H Anterior Bilateral Throughout] Respiratory 22 22 Rate Respiratory 18 18 Rate [Anterior Bilateral Throughout] Blood Pressure 99/45 97/40 O2 Sat by Pulse 100 98 Oximetry 08/29/17 08/29/17 08/29/17 20:20 22:00 23:04 Temperature 97.4 F L 97.4 F L Pulse Rate 110 H 110 H Pulse Rate [ Anterior Bilateral Throughout] Respiratory 18 22 18 Rate Respiratory Rate [Anterior Bilateral Throughout] Blood Pressure 76/37 76/37 O2 Sat by Pulse 95 96 95 Oximetry 08/30/17 08/30/17 08/30/17 00:07 00:41 01:11 Temperature 98.7 F 98.9 F Pulse Rate 114 H 113 H 96 H Pulse Rate [ Anterior Bilateral Throughout] Respiratory 22 22 Rate Respiratory Rate [Anterior Bilateral Throughout] Blood Pressure 76/33 76/38 81/30 O2 Sat by Pulse 96 95 95 Oximetry 08/30/17 08/30/17 08/30/17 01:46 02:04 02:36 Temperature 98.7 F 98.7 F 98.9 F Pulse Rate 114 H 117 H 107 H Pulse Rate [ Anterior Bilateral Throughout] Respiratory 22 22 Rate Respiratory Rate [Anterior Bilateral Throughout] Blood Pressure 85/41 67/36 80/35 O2 Sat by Pulse 95 96 97 Oximetry 08/30/17 08/30/17 04:41 07:10 Temperature 98.1 F 97.6 F Pulse Rate 136 H 131 H Pulse Rate [ Anterior Bilateral Throughout] Respiratory 24 30 H Rate Respiratory Rate [Anterior Bilateral Throughout] Blood Pressure 74/33 77/28 O2 Sat by Pulse 91 97 Oximetry - General Appearance General appearance: well-developed, appears stated age, other (no distress) EENT: ATNC Neck: supple Respiratory: Present: Clear to Ascultation Cardiology: regular, S1S2 Gastrointestinal: normoactive bowel sounds, no tenderness, other (PEG tube noted ) Integumentary: no rash Neurologic: other (arousable, grimaces, non-verbal) Musculoskeletal: other (both LEs and left UE is edematous, right FA dressing) - Lab 08/30/17 06:04 08/30/17 06:04 Most recent lab results Calcium 7.7 mg/dL (8.4-10.2) L 08/30/17 06:04
[2017-08-30] MEDS: DUONEB *Not for PRN Use IH SCH ×5 (08:11→21:18)
[2017-08-30] MEDS: PULMICORT IH SCH ×2 (08:11→19:35)
[2017-08-30] MEDS: BROVANA NEBU IH SCH ×5 (08:12→21:18)
[2017-08-30 08:49] LABS: Band Neutrophils # (Manual) 0.3 K/mm3; Basophils % (Manual) 0 % (0.0-1.8); Eosinophils % (Manual) 0 % (0.0-4.3); Total Cells Counted 200
[2017-08-30 08:50] LABS: Tear Drop Cells Few
[2017-08-30 08:51] LABS: Anisocytosis 1+; Hypochromasia 2+; Target Cells Few
[2017-08-30 08:52] LABS: Toxic Granulation 1+
--- NOTE | 2017-08-30 09:16 | Progress Note ---
Assessment and Plan Assessment and plan: Sepsis IV antibiotics, IVF, serial lactic acid, Blood cultures, monitor uop q shift, Chest X ray, Acute respiratory failure Supplemental oxygen, nebulizer therapy, ABG, Chest X ray, aspiration precautions , NIPPV as needed Pneumonia Pneumonia pathway. Cont. IV anitbiotics, IVF, NIPPV as clinically indicated, Aspiration precautions, Bleeding from dialysis shunt Vascular surgery consulted, pending fistulagram today Coumadin toxicity hold coumadin, transfuse FFP, Vit K IV x 1 Acute blood loss anemia on ESRD Transfuse 2 units PRBCs ESRD HD per Nephrology DVT prophylaxis SCD to BLE Dispositon. Family opting for No HD and DNR. We will d/w family possibility for hospice History Interval history: Somnolent and lethargic. Responds only to painful stimuli Hospitalist Physical - Constitutional Vitals: Temp Pulse Resp BP Pulse Ox 97.6 F 111 H 20 77/28 97 08/30/17 07:10 08/30/17 08:12 08/30/17 08:12 08/30/17 07:10 08/30/17 08:16 General appearance: Present: other (obtunded) - EENT Eyes: Present: PERRL, EOM intact ENT: hearing intact, clear oral mucosa, dentition normal - Neck Neck: Present: supple, normal ROM - Respiratory Respiratory effort: normal Respiratory: bilateral: CTA - Cardiovascular Rhythm: regular Heart Sounds: Present: S1 & S2. Absent: gallop, rub - Extremities Extremities: no ischemia, No edema, Full ROM - Abdominal General gastrointestinal: soft, non-tender, non-distended, normal bowel sounds - Integumentary Integumentary: Present: clear, warm, dry - Neurologic Neurologic: CNII-XII intact, moves all extremities Results - Labs CBC & Chem 7: 08/30/17 06:04 08/30/17 06:04 Labs: Laboratory Last Values WBC 31.9 K/mm3 (4.5-11.0) H 08/30/17 06:04 RBC 2.25 M/mm3 (3.65-5.03) L 08/30/17 06:04 Hgb 6.3 gm/dl (10.1-14.3) L 08/30/17 06:04 Hct 20.0 % (30.3-42.9) L 08/30/17 06:04 MCV 89 fl (79-97) 08/30/17 06:04 MCH 28 pg (28-32) 08/30/17 06:04 MCHC 31 % (30-34) 08/30/17 06:04 RDW 17.5 % (13.2-15.2) H 08/30/17 06:04 Plt Count 274 K/mm3 (140-440) 08/30/17 06:04 Add Manual Diff Complete 08/30/17 06:04 Total Counted 200 08/30/17 06:04 Seg Neutrophils % Metal Tile Setter 08/30/17 06:04 Seg Neuts % (Manual) 94.5 % (40.0-70.0) H 08/30/17 06:04 Band Neutrophils % 1.0 % 08/30/17 06:04 Lymphocytes % (Manual) 0 % (13.4-35.0) L 08/30/17 06:04 Reactive Lymphs % (Man) 0 % 08/30/17 06:04 Monocytes % (Manual) 3.0 % (0.0-7.3) 08/30/17 06:04 Eosinophils % (Manual) 0 % (0.0-4.3) 08/30/17 06:04 Basophils % (Manual) 0 % (0.0-1.8) 08/30/17 06:04 Metamyelocytes % 1.5 % 08/30/17 06:04 Myelocytes % 0 % 08/30/17 06:04 Promyelocytes % 0 % 08/30/17 06:04 Blast Cells % 0 % 08/30/17 06:04 Nucleated RBC % Not Reportable 08/30/17 06:04 Seg Neutrophils # Man 30.1 K/mm3 (1.8-7.7) H 08/30/17 06:04 Band Neutrophils # 0.3 K/mm3 08/30/17 06:04 Lymphocytes # (Manual) 0.0 K/mm3 (1.2-5.4) L 08/30/17 06:04 Abs React Lymphs (Man) 0.0 K/mm3 08/30/17 06:04 Monocytes # (Manual) 1.0 K/mm3 (0.0-0.8) H 08/30/17 06:04 Eosinophils # (Manual) 0.0 K/mm3 (0.0-0.4) 08/30/17 06:04 Basophils # (Manual) 0.0 K/mm3 (0.0-0.1) 08/30/17 06:04 Metamyelocytes # 0.5 K/mm3 08/30/17 06:04 Myelocytes # 0.0 K/mm3 08/30/17 06:04 Promyelocytes # 0.0 K/mm3 08/30/17 06:04 Blast Cells # 0.0 K/mm3 08/30/17 06:04 WBC Morphology Not Reportable 08/30/17 06:04 Hypersegmented Neuts Not Reportable 08/30/17 06:04 Hyposegmented Neuts Not Reportable 08/30/17 06:04 Hypogranular Neuts Not Reportable 08/30/17 06:04 Smudge Cells Not Reportable 08/30/17 06:04 Toxic Granulation 1+ 08/30/17 06:04 Toxic Vacuolation Not Reportable 08/30/17 06:04 Dohle Bodies Not Reportable 08/30/17 06:04 Pelger-Huet Anomaly Not Reportable 08/30/17 06:04 Rafi Rods Not Reportable 08/30/17 06:04 Platelet Estimate Appears normal 08/30/17 06:04 Clumped Platelets Not Reportable 08/30/17 06:04 Plt Clumps, EDTA Not Reportable 08/30/17 06:04 Large Platelets Not Reportable 08/30/17 06:04 Giant Platelets Not Reportable 08/30/17 06:04 Platelet Satelliting Not Reportable 08/30/17 06:04 Plt Morphology Comment Not Reportable 08/30/17 06:04 RBC Morphology Not Reportable 08/30/17 06:04 Dimorphic RBCs Not Reportable 08/30/17 06:04 Polychromasia 1+ 08/30/17 06:04 Hypochromasia 2+ 08/30/17 06:04 Poikilocytosis Not Reportable 08/30/17 06:04 Anisocytosis 1+ 08/30/17 06:04 Microcytosis Not Reportable 08/30/17 06:04 Macrocytosis Not Reportable 08/30/17 06:04 Spherocytes Not Reportable 08/30/17 06:04 Pappenheimer Bodies Not Reportable 08/30/17 06:04 Sickle Cells Not Reportable 08/30/17 06:04 Target Cells Few 08/30/17 06:04 Tear Drop Cells Few 08/30/17 06:04 Ovalocytes Not Reportable 08/30/17 06:04 Helmet Cells Not Reportable 08/30/17 06:04 [place] Bodies Not Reportable 08/30/17 06:04 [place] Rings Not Reportable 08/30/17 06:04 Rosa Cells Not Reportable 08/30/17 06:04 Bite Cells Not Reportable 08/30/17 06:04 Crenated Cell Not Reportable 08/30/17 06:04 Elliptocytes Not Reportable 08/30/17 06:04 Acanthocytes (Spur) Not Reportable 08/30/17 06:04 Rouleaux Not Reportable 08/30/17 06:04 Hemoglobin C Crystals Not Reportable 08/30/17 06:04 Schistocytes Not Reportable 08/30/17 06:04 Malaria parasites Not Reportable 08/30/17 06:04 Daniel Bodies Not Reportable 08/30/17 06:04 Hem Pathologist Commnt No 08/30/17 06:04 PT 26.6 Sec. (12.2-14.9) H 08/30/17 06:04 INR 2.28 (0.87-1.13) H 08/30/17 06:04 APTT 36.6 Sec. (24.2-36.6) 08/30/17 06:04 POC ABG pH 7.483 (7.35-7.45) H 08/29/17 01:30 POC ABG pCO2 37.6 (35-45) 08/29/17 01:30 POC ABG pO2 98 (80-105) 08/29/17 01:30 POC ABG HCO3 28.2 08/29/17 01:30 POC ABG Total CO2 29 08/29/17 01:30 POC ABG O2 Sat 98 08/29/17 01:30 POC ABG Base Excess 5 08/29/17 01:30 FiO2 35 % 08/29/17 01:30 Sodium 143 mmol/L (137-145) 08/30/17 06:04 Potassium 3.8 mmol/L (3.6-5.0) 08/30/17 06:04 Chloride 98.3 mmol/L (98-107) 08/30/17 06:04 Carbon Dioxide 23 mmol/L (22-30) 08/30/17 06:04 Anion Gap 26 mmol/L 08/30/17 06:04 BUN 59 mg/dL (7-17) H 08/30/17 06:04 Creatinine 3.5 mg/dL (0.7-1.2) H D 08/30/17 06:04 Estimated GFR 15 ml/min 08/30/17 06:04 BUN/Creatinine Ratio 17 % 08/30/17 06:04 Glucose 128 mg/dL (65-100) H 08/30/17 06:04 Lactic Acid 1.70 mmol/L (0.7-2.0) 08/29/17 11:40 Calcium 7.7 mg/dL (8.4-10.2) L 08/30/17 06:04 Total Bilirubin 1.00 mg/dL (0.1-1.2) 08/30/17 06:04 AST 5251 units/L (5-40) H 08/30/17 06:04 ALT 3747 units/L (7-56) H 08/30/17 06:04 Alkaline Phosphatase 189 units/L (35-129) H 08/30/17 06:04 Total Protein 5.4 g/dL (6.3-8.2) L 08/30/17 06:04 Albumin 2.5 g/dL (3.9-5) L 08/30/17 06:04 Albumin/Globulin Ratio 0.9 % 08/30/17 06:04 Urine Color [place] (Yellow) 08/28/17 21:58 Urine Turbidity Clear (Clear) 08/28/17 21:58 Urine pH 6.0 (5.0-7.0) 08/28/17 21:58 Ur Specific [place] 1.015 (1.003-1.030) 08/28/17 21:58 Urine Protein 100 mg/dl mg/dL (Negative) 08/28/17 21:58 Urine Glucose (UA) 50 mg/dL (Negative) 08/28/17 21:58 Urine Ketones Neg mg/dL (Negative) 08/28/17 21:58 Urine Blood Mod (Negative) 08/28/17 21:58 Urine Nitrite Neg (Negative) 08/28/17 21:58 Urine Bilirubin Neg (Negative) 08/28/17 21:58 Urine Urobilinogen < 2.0 mg/dL (<2.0) 08/28/17 21:58 Ur Leukocyte Esterase Mod (Negative) 08/28/17 21:58 Urine WBC (Auto) 161.0 /HPF (0.0-6.0) H 08/28/17 21:58 Urine RBC (Auto) 105.0 /HPF (0.0-6.0) 08/28/17 21:58 U Epithel Cells (Auto) 6.0 /HPF (0-13.0) 08/28/17 21:58 Urine Bacteria (Auto) 2+ /HPF (Negative) 08/28/17 21:58 Urine WBC Clumps 1+ /HPF 08/28/17 21:58 Ur Renal Epithelial Cell 5 /LPF 08/28/17 21:58 Urine Mucus Few /HPF 08/28/17 21:58 Blood Type O POSITIVE 08/29/17 11:40 Antibody Screen Negative 08/29/17 11:40 Crossmatch See Detail 08/29/17 11:40
[2017-08-30] MEDS: FERROUS SULFATE FEEDTUBE SCH (11:11)
[2017-08-30] MEDS: BABY ASPIRIN FEEDTUBE SCH (11:11)
[2017-08-30] MEDS: PROTONIX FEEDTUBE SCH (11:11)
[2017-08-30] MEDS: PLAVIX FEEDTUBE SCH (11:11)
[2017-08-30] MEDS: cefTRIAXone 1 GM in NACL 0.9% 20 ML IV SCH (21:34)
[2017-08-30] MEDS: ZITHROMAX FEEDTUBE SCH (21:34)
[2017-08-30] MEDS: SENSIPAR PO SCH (21:35)
[2017-08-30] MEDS: ARICEPT FEEDTUBE SCH (21:35)
[2017-08-31] MEDS: ULTRAM FEEDTUBE PRN (00:22)
[2017-08-31] MEDS: XANAX FEEDTUBE PRN (00:23)
[2017-08-31] MEDS: cefTRIAXone 1 GM in NACL 0.9% 20 ML IV SCH (00:25)
[2017-08-31] MEDS: DUONEB *Not for PRN Use IH SCH ×4 (07:23→19:59)
--- NOTE | 2017-08-31 08:03 | Progress Note ---
Assessment and Plan 1. ESRD: Family decided to stop dialysis. 2. Anemia: Secondary to bleeding from AVF, stopped now. 3. Coumadin toxicity. 4. Bilateral pneumonia. 5. Hypoxic respiratory failure. 6. Elevated Transaminases. Family is considering Hospice. Subjective Date of service: 08/31/17 Interval history: Patient was seen and examined at the bedside. Objective - Vital Signs Vital signs: Vital Signs - 12hr 08/30/17 08/31/17 08/31/17 22:00 05:50 07:13 Temperature 98.3 F 97.4 F L Pulse Rate 136 H 123 H Pulse Rate [ 120 H From Monitor] Respiratory 26 H 22 Rate Blood Pressure 139/59 122/53 O2 Sat by Pulse 94 99 Oximetry - General Appearance General appearance: well-developed, appears stated age, other (stuporous) EENT: ATNC Neck: supple Respiratory: Present: Clear to Ascultation Cardiology: regular, S1S2 Gastrointestinal: normoactive bowel sounds, no tenderness, obese, other (PEG tube noted) Integumentary: no rash Neurologic: other (grimaces) Musculoskeletal: other (bilateral LE and left UE edema noted) - Lab 08/30/17 06:04 08/30/17 06:04 Most recent lab results Calcium 7.7 mg/dL (8.4-10.2) L 08/30/17 06:04
[2017-08-31] MEDS: PULMICORT IH SCH ×2 (09:06→19:58)
[2017-08-31] MEDS: BROVANA NEBU IH SCH ×2 (09:06→19:58)
--- NOTE | 2017-08-31 09:43 | Progress Note ---
Assessment and Plan Assessment and plan: Sepsis IV antibiotics, IVF, serial lactic acid, Blood cultures with ABSORBER OPERATOR --prob a contaminant Acute respiratory failure Supplemental oxygen, nebulizer therapy, ABG, Chest X ray, aspiration precautions , NIPPV as needed Pneumonia Pneumonia pathway. Cont. IV anitbiotics, IVF, NIPPV as clinically indicated, Aspiration precautions, Bleeding from dialysis shunt Comfort care Coumadin toxicity hold coumadin, s/p transfusion FFP and Vit K IV Acute blood loss anemia on ESRD s/p Transfuse 2 units PRBCs ESRD Family has opted for no HD DVT prophylaxis SCD to BLE Dispositon. Family opting for No HD and DNR. I d/w daughter hospice care at [facility] in am and she is agreeable. Await CM f/u. D/C in am History Interval history: Somnolent and lethargic. Responds only to painful stimuli. Daughter at bedside Hospitalist Physical - Constitutional Vitals: Temp Pulse Resp BP Pulse Ox 97.4 F L 112 H 18 122/53 97 08/31/17 07:13 08/31/17 09:14 08/31/17 09:14 08/31/17 07:13 08/31/17 08:11 General appearance: Present: other (obtunded) - EENT Eyes: Present: PERRL, EOM intact ENT: hearing intact, clear oral mucosa, dentition normal - Neck Neck: Present: supple, normal ROM - Respiratory Respiratory effort: normal Respiratory: bilateral: diminished, rales, rhonchi - Cardiovascular Rhythm: regular Heart Sounds: Present: S1 & S2. Absent: gallop, rub - Extremities Extremities: no ischemia, No edema, Full ROM - Abdominal General gastrointestinal: soft, non-tender, non-distended, normal bowel sounds - Integumentary Integumentary: Present: clear, warm, dry - Neurologic Neurologic: CNII-XII intact, moves all extremities Results - Labs CBC & Chem 7: 08/30/17 06:04 08/30/17 06:04 Labs: Laboratory Last Values WBC 31.9 K/mm3 (4.5-11.0) H 08/30/17 06:04 RBC 2.25 M/mm3 (3.65-5.03) L 08/30/17 06:04 Hgb 6.3 gm/dl (10.1-14.3) L 08/30/17 06:04 Hct 20.0 % (30.3-42.9) L 08/30/17 06:04 MCV 89 fl (79-97) 08/30/17 06:04 MCH 28 pg (28-32) 08/30/17 06:04 MCHC 31 % (30-34) 08/30/17 06:04 RDW 17.5 % (13.2-15.2) H 08/30/17 06:04 Plt Count 274 K/mm3 (140-440) 08/30/17 06:04 Add Manual Diff Complete 08/30/17 06:04 Total Counted 200 08/30/17 06:04 Seg Neutrophils % Police Chief Deputy 08/30/17 06:04 Seg Neuts % (Manual) 94.5 % (40.0-70.0) H 08/30/17 06:04 Band Neutrophils % 1.0 % 08/30/17 06:04 Lymphocytes % (Manual) 0 % (13.4-35.0) L 08/30/17 06:04 Reactive Lymphs % (Man) 0 % 08/30/17 06:04 Monocytes % (Manual) 3.0 % (0.0-7.3) 08/30/17 06:04 Eosinophils % (Manual) 0 % (0.0-4.3) 08/30/17 06:04 Basophils % (Manual) 0 % (0.0-1.8) 08/30/17 06:04 Metamyelocytes % 1.5 % 08/30/17 06:04 Myelocytes % 0 % 08/30/17 06:04 Promyelocytes % 0 % 08/30/17 06:04 Blast Cells % 0 % 08/30/17 06:04 Nucleated RBC % Not Reportable 08/30/17 06:04 Seg Neutrophils # Man 30.1 K/mm3 (1.8-7.7) H 08/30/17 06:04 Band Neutrophils # 0.3 K/mm3 08/30/17 06:04 Lymphocytes # (Manual) 0.0 K/mm3 (1.2-5.4) L 08/30/17 06:04 Abs React Lymphs (Man) 0.0 K/mm3 08/30/17 06:04 Monocytes # (Manual) 1.0 K/mm3 (0.0-0.8) H 08/30/17 06:04 Eosinophils # (Manual) 0.0 K/mm3 (0.0-0.4) 08/30/17 06:04 Basophils # (Manual) 0.0 K/mm3 (0.0-0.1) 08/30/17 06:04 Metamyelocytes # 0.5 K/mm3 08/30/17 06:04 Myelocytes # 0.0 K/mm3 08/30/17 06:04 Promyelocytes # 0.0 K/mm3 08/30/17 06:04 Blast Cells # 0.0 K/mm3 08/30/17 06:04 WBC Morphology Not Reportable 08/30/17 06:04 Hypersegmented Neuts Not Reportable 08/30/17 06:04 Hyposegmented Neuts Not Reportable 08/30/17 06:04 Hypogranular Neuts Not Reportable 08/30/17 06:04 Smudge Cells Not Reportable 08/30/17 06:04 Toxic Granulation 1+ 08/30/17 06:04 Toxic Vacuolation Not Reportable 08/30/17 06:04 Dohle Bodies Not Reportable 08/30/17 06:04 Pelger-Huet Anomaly Not Reportable 08/30/17 06:04 Rafi Rods Not Reportable 08/30/17 06:04 Platelet Estimate Appears normal 08/30/17 06:04 Clumped Platelets Not Reportable 08/30/17 06:04 Plt Clumps, EDTA Not Reportable 08/30/17 06:04 Large Platelets Not Reportable 08/30/17 06:04 Giant Platelets Not Reportable 08/30/17 06:04 Platelet Satelliting Not Reportable 08/30/17 06:04 Plt Morphology Comment Not Reportable 08/30/17 06:04 RBC Morphology Not Reportable 08/30/17 06:04 Dimorphic RBCs Not Reportable 08/30/17 06:04 Polychromasia 1+ 08/30/17 06:04 Hypochromasia 2+ 08/30/17 06:04 Poikilocytosis Not Reportable 08/30/17 06:04 Anisocytosis 1+ 08/30/17 06:04 Microcytosis Not Reportable 08/30/17 06:04 Macrocytosis Not Reportable 08/30/17 06:04 Spherocytes Not Reportable 08/30/17 06:04 Pappenheimer Bodies Not Reportable 08/30/17 06:04 Sickle Cells Not Reportable 08/30/17 06:04 Target Cells Few 08/30/17 06:04 Tear Drop Cells Few 08/30/17 06:04 Ovalocytes Not Reportable 08/30/17 06:04 Helmet Cells Not Reportable 08/30/17 06:04 Cabez[place] Bodies Not Reportable 08/30/17 06:04 [place] Rings Not Reportable 08/30/17 06:04 Rosa Cells Not Reportable 08/30/17 06:04 Bite Cells Not Reportable 08/30/17 06:04 Crenated Cell Not Reportable 08/30/17 06:04 Elliptocytes Not Reportable 08/30/17 06:04 Acanthocytes (Spur) Not Reportable 08/30/17 06:04 Rouleaux Not Reportable 08/30/17 06:04 Hemoglobin C Crystals Not Reportable 08/30/17 06:04 Schistocytes Not Reportable 08/30/17 06:04 Malaria parasites Not Reportable 08/30/17 06:04 Daniel Bodies Not Reportable 08/30/17 06:04 Hem Pathologist Commnt No 08/30/17 06:04 PT 26.6 Sec. (12.2-14.9) H 08/30/17 06:04 INR 2.28 (0.87-1.13) H 08/30/17 06:04 APTT 36.6 Sec. (24.2-36.6) 08/30/17 06:04 POC ABG pH 7.483 (7.35-7.45) H 08/29/17 01:30 POC ABG pCO2 37.6 (35-45) 08/29/17 01:30 POC ABG pO2 98 (80-105) 08/29/17 01:30 POC ABG HCO3 28.2 08/29/17 01:30 POC ABG Total CO2 29 08/29/17 01:30 POC ABG O2 Sat 98 08/29/17 01:30 POC ABG Base Excess 5 08/29/17 01:30 FiO2 35 % 08/29/17 01:30 Sodium 143 mmol/L (137-145) 08/30/17 06:04 Potassium 3.8 mmol/L (3.6-5.0) 08/30/17 06:04 Chloride 98.3 mmol/L (98-107) 08/30/17 06:04 Carbon Dioxide 23 mmol/L (22-30) 08/30/17 06:04 Anion Gap 26 mmol/L 08/30/17 06:04 BUN 59 mg/dL (7-17) H 08/30/17 06:04 Creatinine 3.5 mg/dL (0.7-1.2) H D 08/30/17 06:04 Estimated GFR 15 ml/min 08/30/17 06:04 BUN/Creatinine Ratio 17 % 08/30/17 06:04 Glucose 128 mg/dL (65-100) H 08/30/17 06:04 Lactic Acid 1.70 mmol/L (0.7-2.0) 08/29/17 11:40 Calcium 7.7 mg/dL (8.4-10.2) L 08/30/17 06:04 Total Bilirubin 1.00 mg/dL (0.1-1.2) 08/30/17 06:04 AST 5251 units/L (5-40) H 08/30/17 06:04 ALT 3747 units/L (7-56) H 08/30/17 06:04 Alkaline Phosphatase 189 units/L (35-129) H 08/30/17 06:04 Total Protein 5.4 g/dL (6.3-8.2) L 08/30/17 06:04 Albumin 2.5 g/dL (3.9-5) L 08/30/17 06:04 Albumin/Globulin Ratio 0.9 % 08/30/17 06:04 Urine Color [place] (Yellow) 08/28/17 21:58 Urine Turbidity Clear (Clear) 08/28/17 21:58 Urine pH 6.0 (5.0-7.0) 08/28/17 21:58 Ur Specific [place] 1.015 (1.003-1.030) 08/28/17 21:58 Urine Protein 100 mg/dl mg/dL (Negative) 08/28/17 21:58 Urine Glucose (UA) 50 mg/dL (Negative) 08/28/17 21:58 Urine Ketones Neg mg/dL (Negative) 08/28/17 21:58 Urine Blood Mod (Negative) 08/28/17 21:58 Urine Nitrite Neg (Negative) 08/28/17 21:58 Urine Bilirubin Neg (Negative) 08/28/17 21:58 Urine Urobilinogen < 2.0 mg/dL (<2.0) 08/28/17 21:58 Ur Leukocyte Esterase Mod (Negative) 08/28/17 21:58 Urine WBC (Auto) 161.0 /HPF (0.0-6.0) H 08/28/17 21:58 Urine RBC (Auto) 105.0 /HPF (0.0-6.0) 08/28/17 21:58 U Epithel Cells (Auto) 6.0 /HPF (0-13.0) 08/28/17 21:58 Urine Bacteria (Auto) 2+ /HPF (Negative) 08/28/17 21:58 Urine WBC Clumps 1+ /HPF 08/28/17 21:58 Ur Renal Epithelial Cell 5 /LPF 08/28/17 21:58 Urine Mucus Few /HPF 08/28/17 21:58 Blood Type O POSITIVE 08/29/17 11:40 Antibody Screen Negative 08/29/17 11:40 Crossmatch See Detail 08/29/17 11:40
[2017-08-31] MEDS: FERROUS SULFATE FEEDTUBE SCH (09:57)
[2017-08-31] MEDS: PLAVIX FEEDTUBE SCH (09:57)
[2017-08-31] MEDS: BABY ASPIRIN FEEDTUBE SCH (09:57)
[2017-08-31] MEDS: PROTONIX FEEDTUBE SCH (09:57)
[2017-08-31] MEDS: SENSIPAR PO SCH (22:29)
[2017-08-31] MEDS: ARICEPT FEEDTUBE SCH (22:29)
[2017-08-31] MEDS: ZITHROMAX FEEDTUBE SCH (22:29)
[2017-09-01] MEDS: PULMICORT IH SCH (07:45)
[2017-09-01] MEDS: BROVANA NEBU IH SCH (07:46)
[2017-09-01] MEDS: DUONEB *Not for PRN Use IH SCH ×2 (08:04→13:50)
--- NOTE | 2017-09-01 09:25 | Discharge Summary ---
Providers - Providers Date of Admission: 08/28/17 19:19 Date of discharge: 09/01/17 Attending physician: SOURAV TAM 08/28/17 18:51 Consult to Physician [CONS] Stat Consulting Provider: PILY HAMILTON Reason For Exam: bleeding dialysis Notified:: lety 08/28/17 18:52 Consult to Physician [CONS] Stat Consulting Provider: CAROLYN CAPONE Reason For Exam: esrd Place consult to:: [facility] Notified:: y Primary care physician: PIPE FITTINGS MOLDER Hospitalization Condition: Stable Disposition: DC-30 STILL A PATIENT Exam - Constitutional Vitals: Temp Pulse Resp BP Pulse Ox 98.1 F 125 H 18 99/41 95 09/01/17 08:06 09/01/17 08:10 09/01/17 08:10 09/01/17 08:06 09/01/17 09:11 Plan Follow up with: PRIMARY CARE, [Primary Care Provider] - 3-5 Days Prescriptions: Azithromycin [Zithromax TAB] 500 mg FEEDTUBE QHS #5 tablet
--- NOTE | 2017-09-01 10:14 | Progress Note ---
Assessment and Plan 1. ESRD: Dialysis stopped per family request. 2. Anemia: Secondary to bleeding from AVF, stopped now. 3. Coumadin toxicity. 4. Bilateral pneumonia. 5. Hypoxic respiratory failure. 6. Elevated Transaminases. Patient is being transferred to Hospice today. Subjective Date of service: 09/01/17 Interval history: Patient was seen and examined at the bedside. Objective - Vital Signs Vital signs: Vital Signs - 12hr 08/31/17 09/01/17 09/01/17 23:39 03:06 08:00 Temperature 97.7 F Pulse Rate 128 H Pulse Rate [ 124 H 129 H Anterior Bilateral Throughout] Pulse Rate [ Anterior Bilateral] Respiratory 28 H Rate Respiratory 20 18 Rate [Anterior Bilateral Throughout] Respiratory Rate [Anterior Bilateral] Blood Pressure 114/38 O2 Sat by Pulse 90 Oximetry 09/01/17 09/01/17 09/01/17 08:06 08:10 09:11 Temperature 98.1 F Pulse Rate 129 H Pulse Rate [ 125 H Anterior Bilateral Throughout] Pulse Rate [ 125 H Anterior Bilateral] Respiratory 22 Rate Respiratory 18 Rate [Anterior Bilateral Throughout] Respiratory 18 Rate [Anterior Bilateral] Blood Pressure 99/41 O2 Sat by Pulse 95 95 Oximetry - General Appearance General appearance: well-developed, appears stated age EENT: ATNC Neck: supple Respiratory: Present: Clear to Ascultation Cardiology: regular, S1S2, no murmurs Gastrointestinal: normoactive bowel sounds, no tenderness, obese, other (PEG tube noted) Integumentary: no rash Neurologic: other (barely arousable) Musculoskeletal: other (bilateral LE and left UE edema noted, right FA AVF) - Lab 08/30/17 06:04 08/30/17 06:04 Most recent lab results Calcium 7.7 mg/dL (8.4-10.2) L 08/30/17 06:04
[2017-09-01] MEDS: FERROUS SULFATE FEEDTUBE SCH (11:06)
[2017-09-01] MEDS: PLAVIX FEEDTUBE SCH (11:06)
[2017-09-01] MEDS: BABY ASPIRIN FEEDTUBE SCH (11:07)
[2017-09-01] MEDS: PROTONIX FEEDTUBE SCH (11:07)
[2017-09-01 12:56] VITALS: BP 102/47
== END 2017-09-01 13:30 | disposition hospice, inpatient (51) | DRG 314 ==
LOC: ED 14:18 → 3A 19:19
PROVIDERS: ADMIT Internal Medicine; ATTEND Hospitalist
PROC: 4A033R1 Measurement of Arterial Saturation, Peripheral, Percutaneous Approach (ICD-10-PCS; principal; 2017-08-29)
PROC: 30233L1 Transfusion of Nonautologous Fresh Plasma into Peripheral Vein, Percutaneous Approach (ICD-10-PCS; 2017-08-29)
PROC: 30233N1 Transfusion of Nonautologous Red Blood Cells into Peripheral Vein, Percutaneous Approach (ICD-10-PCS; 2017-08-29)
PROC: 30233K1 Transfusion of Nonautologous Frozen Plasma into Peripheral Vein, Percutaneous Approach (ICD-10-PCS; 2017-08-29)
DX: T82.838A Hemorrhage due to vascular prosthetic devices, implants and grafts, initial encounter (principal); A41.9 Sepsis, unspecified organism; J96.01 Acute respiratory failure with hypoxia; J18.9 Pneumonia, unspecified organism; N18.6 End stage renal disease; F20.0 Paranoid schizophrenia; D62 Acute posthemorrhagic anemia; T45.515A Adverse effect of anticoagulants, initial encounter; K21.9 Gastro-esophageal reflux disease without esophagitis; I48.91 Unspecified atrial fibrillation; F03.90 Unspecified dementia, unspecified severity, without behavioral disturbance, psychotic disturbance, mood disturbance, and anxiety; Z79.82 Long term (current) use of aspirin; Z79.01 Long term (current) use of anticoagulants; E11.22 Type 2 diabetes mellitus with diabetic chronic kidney disease; Z99.2 Dependence on renal dialysis; Z82.49 Family history of ischemic heart disease and other diseases of the circulatory system
CPT/HCPCS: 36415; 36600; 71045; 80048; 80053; 81001; 82140; 82803; 82962; 85007; 85025; 85027; 85610; 85730; 86850; 86900; 86901; 86920; 87040; 87076; 87186; 94640; 94760; 96365; 96375; A6021; A9270-GY; J0456; J0696; J2597; J2720; J3370; J3430; J7030; J7040; J7050; P9016; P9017